=== PATIENT | male | born 1985 | race Caucasian/White ===

== ENCOUNTER → 2018-12-28 | Outpatient (CLI) | payer BC ==
[~2018-12-28] MED LIST: HYDACE5 PO; WARF6 PO; WARF7.5
[2018-12-28 18:07] LABS: International Normalized Ratio 1.35; Prothrombin Time Results 13.9 Sec (9.7-11.5)
== END | disposition home or self-care (01) ==
LOC: LAB SHORT 15:00 → LAB EV 15:00
PROVIDERS: Physician Assistant
DX: Z09 Encounter for follow-up examination after completed treatment for conditions other than malignant neoplasm (principal); Z86.718 Personal history of other venous thrombosis and embolism
CPT/HCPCS: 85610

== ENCOUNTER 2020-12-08 06:11 | Inpatient (IN) | payer BC ==
[~2020-12-08] VITALS: Ht 177.8 cm; Wt 120.1 kg
[~2020-12-08 06:11] MED LIST changes: +XARELTO20 MG PO
--- NOTE | 2020-12-08 07:14 | NUR ---
Ambulatory in Day Surgery Surgical site prepped with 2% Chlorhexidine cloth wipe. Manuel Paws warming gown applied. History, Chart, Medications and Allergies reviewed before start of procedure.Lungs clear T/O to Auscultation. Patient confirms NPO status and agrees with scheduled surgery. Pre-Op teaching done. Pt verbalizes understanding. Patient reports completing Chlorhexadine shower X2 prior to admission to hospital.
--- NOTE | 2020-12-08 15:41 | NUR ---
PATIENT CAME BACK FROM PACU TODAY 12/08/20 AT AROUND 1400. HE IS ALERT AND ORIENTED X4. VS ARE WNL AND IS ON RA. PATIENT REPORTS SOME DISCOMFORT BUT REFUSES PAIN MEDS AT THIS TIME. MIDLINE INCISION IS C/D/I WITH WOUND GLUE AND IS OPEN TO AIR. THERE ARE TWO HILARY DRAINS ONE ON EACH ABD SIDE. BULBS WERE COMPRESSED WITH RED OUTPUT. AVALOS IS PATENT AND IN PLACE WITH NO KINKS IN TUBING. HE TOLERATES HIS PO INTAKE WITH NO NAUSEA. ABD BINDER IS ON. CALL LIGHT IS WITHIN REACH.
--- NOTE | 2020-12-08 17:20 | NUR ---
SHIFT SUMMARY: POD 0 OPEN HERNIA REPAIR PATIENT IS ALERT AND ORIENTED X4. VS ARE WNL AND IS ON RA. HE DENIES PAIN AT THIS TIME. MIDLINE INCISION HAS WOUND GLUE AND IT OPEN TO AIR. IT IS C/D/I. BOTH HILARY DRAINS HAVE RED OUTPUT IN BULB. DRESSING IS C/D/I FOR BOTH OF THEM. BULBS ARE BOTH STILL COMPRESSED. AVALOS IS PATENT WITH NO KINKS IN TUBING. HE ALSO HAS HIS ABD BINDER ON WHICH HE STATES HELPS. CALL LIGHT WITHIN REACH. THE PLAN IS TO ADVANCE DIET TOLERATED AND ENCOURAGE AMBULATION.
--- NOTE | 2020-12-09 04:45 | NUR ---
SHIFT SUMMARY POD#1 OPEN HERNIA REPAIR WITH MESH. AAOX4. DISCOMFORT CONTROLLED WITH TYLENOL THIS SHIFT. NO NAUSEA/EMESIS. ABD INCISION WITH MORENITA CLEAN/APPROXIMATED. HILARY X2 WITH SMALL AMOUNT RED DRAINAGE. IVF + ABX PER ORDERS. PT RESTED INFREQUENTLY THIS NOC SHIFT, AWAKENS EASILY, PLEASENT/COOPERATIVE WITH CARE. AVALOS SECURE/DRAINING LARE AMOUNTS URINE. PT CURRENTLY RESTING WELL IN BED WITH CALL LIGHT IN REACH.
[2020-12-09 05:02] LABS: Hematocrit 43.1 % (37.0-53.0); Hemoglobin 14.4 g/dL (13.5-17.5); Mean Corpuscular HGB 29.6 pg (26.0-34.0); Mean Corpuscular HGB Conc 33.4 g/dL (31.5-36.5); Mean Corpuscular Volume 89 fL (80-100); Mean Platelet Volume 11.9 fL (9.1-12.4); Platelet Count 183 K/mm3 (150-400); RDW Coefficient Variation 13.1 % (11.7-14.2); RDW Standard Deviation 43.1 fL (35.1-46.3); Red Blood Cell Count 4.86 M/mm3 (4.30-5.90); White Blood Cell Count 11.03 K/mm3 (4.00-11.30)
[2020-12-09 05:24] LABS: Anion Gap 4 mmol/L (6-16); Blood Urea Nitrogen 12 mg/dL (8-24); CO2, Blood 30 mmol/L (21-32); Calcium, Blood 8.7 mg/dL (8.5-10.1); Chloride, Blood 101 mmol/L (98-108); Creatinine, Blood 0.93 mg/dL (0.60-1.20); Glomerular Filtration Rate >60 (60-); Glucose, Blood 123 mg/dL (70-99); Sodium, Blood 135 mmol/L (136-145)
--- NOTE | 2020-12-09 17:27 | NUR ---
SHIFT SUMMARY PT A&OX4, VSS, POD1 HERNIA REPAIR, JPX2 W/RED DRAINAGE, PASSING LARGE AMT OF FLATUS. FRANKY PO/REG DIET, DENIES N&V. PAIN MANAGED WITH TYLENOL AND TORADOL. AMBULATING INDEPENDENT IN ROOM, TO BRP, IN HALLWAY, UP TO CHAIR T/O SHIFT. VOIDING WELL. WILL REPORT TO ONCOMING NOC RN.
--- NOTE | 2020-12-10 05:24 | NUR ---
SHIFT SUMMARY POD#2 HERNIA REPAIR WITH DRAINS X2. AAOX4. DISCOMFORT CONTROLLED WITH TYLENOL Q6H. NO NAUSEA/EMESIS. MIDLINE ABD INCISION C/D/I WITH HILARY X2, SMALL AMOUNT RED DRAINAGE. PT UP AMBULATING IN HALLS INDEPENDENTLY. GOOD PO INTAKE + OUTPUT. PT REPORTING LARGE AMOUNTS OF FLATUS + BURPING, NO BM POST OP. PT RESTING INFREQUENTLY THIS SHIFT. NO ACUTE CHANGES OVER NIGHT.
[2020-12-10] MEDS ORDERED: HYDR1TAB94 PO (15:30)
--- NOTE | 2020-12-10 17:00 | NUR ---
DISCHARGE SUMMARY PT A&OX4, VSS, AMBULATING INDEPENDENTLY, VOIDING WELL, TOLERATING PO, DENIES PAIN AT THIS TIME. LEFT FLOOR WITH MOM, WITH ALL PERSONAL POSSESSIONS INCLUDING DC PACKET AND 1 NARC SCRIPT, TO GO HOME. DC INSTRUCTIONS PROVIDED. PT REP UNDERSTANDING THOSE INSTRUCTIONS. IV DC'D.
== END 2020-12-10 16:00 | disposition home or self-care (01) | DRG 355 ==
LOC: SURS 06:11 → PRE IP 07:30 → SURS 13:37
PROVIDERS: ADMIT Surgery
PROC: 0KXL0Z6 Transfer Left Abdomen Muscle, Transverse Rectus Abdominis Myocutaneous Flap, Open Approach (ICD-10-PCS; 2020-12-08)
PROC: 0KXK0Z6 Transfer Right Abdomen Muscle, Transverse Rectus Abdominis Myocutaneous Flap, Open Approach (ICD-10-PCS; 2020-12-08)
PROC: 0WUF0JZ Supplement Abdominal Wall with Synthetic Substitute, Open Approach (ICD-10-PCS; principal; 2020-12-08 07:30)
DX: K43.0 Incisional hernia with obstruction, without gangrene (principal); E66.9 Obesity, unspecified; Z86.718 Personal history of other venous thrombosis and embolism; Z68.39 Body mass index [BMI] 39.0-39.9, adult; Z98.890 Other specified postprocedural states; Z79.01 Long term (current) use of anticoagulants
CPT/HCPCS: 36415; 80048; 85027; A9270; C1781; J0690; J1100; J1644; J1650; J1885; J2250; J2405; J2704; J3010; J7120

== ENCOUNTER → 2025-04-07 | Outpatient (CLI) | payer OTHER ==
[~2025-04-07] MED LIST changes: +HYDR1TAB94 PO
[2025-04-09 08:51] LABS: APTIMA MEDIA TYPE Urine; C. TRACHOMATIS BY TMA Negative (Negative); N. GONORRHOEAE BY TMA Negative (Negative)
== END ==
LOC: LAB 06:30 → LAB SHORT 06:30
PROVIDERS: Physician Assistant
DX: Z11.3 Encounter for screening for infections with a predominantly sexual mode of transmission (principal)
CPT/HCPCS: 87491; 87591